=== PATIENT | female | born 1980 | race Caucasian/White ===

== ENCOUNTER → 2018-11-17 | Outpatient (CLI) | payer OTHER ==
--- NOTE | 2018-11-17 16:39 | REP ---
Left os calcis: Two views. History: Pain in the left heel. Findings: Axial and lateral views of the left calcaneus demonstrate a fairly large plantar calcaneal spur. Bones, joints, and soft tissues are otherwise unremarkable. Impression: Prominent plantar heel spur. Otherwise negative. Electronically Signed by Osman Rosen MD 11/17/2018 04:54 P
== END ==
LOC: M LRY 15:55
PROVIDERS: ATTEND Nurse Practitioner Family
DX: M77.32 Calcaneal spur, left foot (principal)
CPT/HCPCS: 73650; G0463